=== PATIENT | female | born 1980 | race Caucasian/White ===

== ENCOUNTER → 2020-06-14 | Outpatient (CLI) | payer OTHER ==
[~2020-06-14] MED LIST: IBUP600T42 PO; MAPA500T2 PO; PERC5TAB12 PO; VITAPRTA PO
--- NOTE | 2020-08-02 09:38 | REP ---
MRI LEFT KNEE HISTORY: Pain. COMPARISON: 10/09/2014 TECHNIQUE: Multiple sequences obtained in the axial, coronal, and sagittal planes. FINDINGS: The menisci are intact with no evidence of a tear. The cruciate and collateral ligaments are intact. The extensor mechanism is intact. 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 However, there is worsening of moderate chondromalacia along the medial femoral condyle diffusely with new focal cartilaginous defect, extending close to the osseous surface along the weightbearing surface of the medial femoral condyle with a maximum AP diameter of 1.7 cm and transverse 8 mm. There is no bone marrow edema or occult fracture. There is a moderate joint effusion. There is a suprapatellar plica. IMPRESSION: No meniscal tear. Cruciate and collateral ligaments intact. 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 A new cartilaginous defect is seen along the weightbearing surface measuring 1.7 x 0.8 cm and extending close to the osseous surface. Moderate joint effusion. Suprapatellar plica. MTDD
== END ==
LOC: M RAD 07:03
PROVIDERS: ATTEND Family Medicine
DX: M22.42 Chondromalacia patellae, left knee (principal)